=== PATIENT | male | born 1970 | race Caucasian/White ===

== ENCOUNTER → 2020-09-29 00:52 | Outpatient (CLI) | payer OTHER, SELFPAY ==
[2020-09-29 19:13] LABS: SARS-CoV-2 RNA PCR Negative
== END ==
PROVIDERS: Visit Provider Internal Medicine Gastroenterology
DX: Z01.812 Encounter for preprocedural laboratory examination (principal); Z20.822 Contact with and (suspected) exposure to COVID-19
CPT/HCPCS: C9803; U0003; U0005

== ENCOUNTER 2020-10-03 02:23 | Day surgery (SDC) | payer OTHER, SELFPAY ==
[2020-09-21 10:44] VITALS: BMI 26.8
[2020-10-03 07:21] VITALS: BP 130/90; PULSE 90; RESP 17; TEMP 37.3; O2SAT 95; BMI 27.1
[2020-10-03] MEDS: LACTATED RINGERS 1,000 ML 150 ML IV CONT (07:28)
--- NOTE | 2020-10-03 07:47 | P.PNAN_ITS ---
Anes - Initial Pre Proc Eval Procedure: Operation Date: 10/03/20 08:30 Proposed Procedures p Screening Colonoscopy - Sammy Cano MD Date/Time: 10/03/20 07:47 Surgeon: Sammy Cano MD Pre Op Diagnosis: neoplasm screening Patient Data Age: 49 Gender: M Height: 5 ft 8 in Weight: 81.1 kg Last Vital Signs Temp 99.2 F 10/03/20 07:21 Pulse 90 10/03/20 07:21 Resp 17 10/03/20 07:21 BP 130/90 10/03/20 07:21 Pulse Ox 95 10/03/20 07:21 Allergies Allergy/AdvReac Type Severity Reaction Status Date / Time No Known Allergies Allergy Verified 10/03/20 07:20 Home Medications Medication Instructions Recorded Confirmed Type tadalafil 5 mg PO DAILY 09/21/20 10/03/20 History Patient hx anesthesia problems: none Family hx anesthesia problems: none [facility] Past Medical History Medical History (Updated 10/03/20 @ 07:47 by Arthur Koch MD) Healthy adult Social History Social History Smoking status: Never smoker Alcohol intake: never Substance use: never Substance use type: does not use Living arrangements: with family Spiritual care concerns: No Anes - Eval Final PreProcedure Day of Procedure 10/03/20 07:47 Patient weight: overweight Heart: regular rate and rhythm Lungs: clear to auscultation Airway: Mallampati scale class II Neurological: alert and oriented Last oral intake: >/= 8 hours ASA classification: II Emergent: no Anesthetic plan: proceed Anesthesia type and monitoring: general GIVS and standard monitoring Informed Consent: The patient's anesthetic plan and its attendant risks and benefits were discussed with the patient/family/POA. Questions were solicited and answers provided to the satisfaction of the patient/family/POA.
--- NOTE | 2020-10-03 08:24 | PM.HPGS ---
History of Present Illness History of Present Illness Consent: Risks, benefits, and alternatives have been discussed and questions answered. Patient agrees to proceed with procedure. Chief complaint: neoplasm screening Narrative: Suresh Velazquez is a 49 year old male referred for colon cancer screening Review of Systems Review of Systems: All systems reviewed & are unremarkable except as noted in HPI and below PMFSH Past Medical History Medical History (Updated 10/03/20 @ 08:24 by Sammy Cano MD) Healthy adult Social History Social History Smoking status: Never smoker Alcohol intake: never Substance use: never Substance use type: does not use Living arrangements: with family Spiritual care concerns: No Meds Home Medications and Allergies Home Medications Medication Instructions Recorded Confirmed Type tadalafil 5 mg PO DAILY 09/21/20 10/03/20 History Allergies Allergy/AdvReac Type Severity Reaction Status Date / Time No Known Allergies Allergy Verified 10/03/20 07:20 Vital Signs Vital Signs - 24 hr 10/03/20 07:21 Temperature 37.3 C Pulse Rate 90 Respiratory Rate 17 Blood Pressure 130/90 Pulse Oximetry 95 Exam Resp: Auscultation: clear to auscultation bilaterally Cardio: Rate: regular rate Rhythm: regular rhythm GI: GI Palp: Yes Soft to palpation and No Tenderness to palpation present (GI) Assessment and Plan Assessment and plan (1) Colon cancer screening: Code(s): Z12.11 - Encounter for screening for malignant neoplasm of colon Status: Acute Assessment and Plan: Colonoscopy with possible biopsy or polypectomy or cautery or injection of substances.
[2020-10-03 08:48] VITALS: BP 128/72; PULSE 80; RESP 19; O2SAT 94
[2020-10-03 08:58] VITALS: BP 134/75; PULSE 80; RESP 22; O2SAT 97
[2020-10-03 09:08] VITALS: BP 119/77; PULSE 81; RESP 21; O2SAT 98
== END 2020-10-03 09:27 | disposition home or self-care (01) ==
PROVIDERS: PCP Internal Medicine; Visit Provider Internal Medicine Gastroenterology
PROC: 0DJD8ZZ Inspection of Lower Intestinal Tract, Via Natural or Artificial Opening Endoscopic (ICD-10-PCS; CPT 45378; principal; 2020-10-03 08:30)
DX: Z12.11 Encounter for screening for malignant neoplasm of colon (principal); K57.30 Diverticulosis of large intestine without perforation or abscess without bleeding
CPT/HCPCS: 45378; C9803; J2704; J7120; U0003; U0005